=== PATIENT | female | born 1945 | race Caucasian/White ===

== ENCOUNTER 2019-05-14 08:08 | Inpatient (IN) | payer OTHER ==
[~2019-05-14] VITALS: Ht 152.4 cm; Wt 74.8 kg
[2019-05-20] MEDS ORDERED: NORVASC5 MG PO (10:06)
[2019-05-20] MEDS ORDERED: MULTIPLE VITAM1 EACH PO (10:07)
[2019-05-20] MEDS ORDERED: LASIX20 MG PO (10:07)
[2019-05-20] MEDS ORDERED: TRANDATE300 MG PO (10:07)
[2019-05-20] MEDS ORDERED: ASPIRIN81 M1 PO (10:08)
[2019-05-31] MEDS ORDERED: CIPRO500 MG PO (08:30)
[2019-05-31] MEDS ORDERED: INTESTINEX680 M1 PO (08:30)
[2019-05-31] MEDS ORDERED: HYOSCYAMINE0.125 M1 SL (08:30)
[2019-05-31] MEDS ORDERED: OXYC1TAB9 PO (08:30)
[2019-05-31] MEDS ORDERED: FLAGYL500MG PO (08:31)
== END 2019-05-31 12:49 | disposition home or self-care (01) | DRG 349 ==
LOC: SURG 05-20 07:00 → O/R 05-27 08:00 → SURG 05-27 08:00
PROVIDERS: ADMIT Surgery
PROC: 0DBP7ZZ Excision of Rectum, Via Natural or Artificial Opening (ICD-10-PCS; principal; 2019-05-27 07:00)
PROC: 3E0T3BZ Introduction of Anesthetic Agent into Peripheral Nerves and Plexi, Percutaneous Approach (ICD-10-PCS; 2019-05-27 07:00)
DX: C20 Malignant neoplasm of rectum (principal); R19.5 Other fecal abnormalities; I10 Essential (primary) hypertension; M25.462 Effusion, left knee

== ENCOUNTER 2024-07-04 15:52 | Inpatient (IN) | payer OTHER ==
[~2024-07-04] VITALS: Ht 162.6 cm; Wt 45.4 kg
[~2024-07-04 15:52] MED LIST: ASPIRIN81 M1 PO; CIPRO500 MG PO; FLAGYL500MG PO; HYOSCYAMINE0.125 M1 SL; INTESTINEX680 M1 PO; LASIX20 MG PO; MULTIPLE VITAM1 EACH PO; NORVASC5 MG PO; OXYC1TAB9 PO; TRANDATE300 MG PO
[2024-07-04] MEDS ORDERED: 0.9 % SODIUM CHLORIDE 1,000 ML IV ONE (16:45)
[2024-07-04] MEDS ORDERED: LABETALOL HCL 200 MG/40 ML VIAL IV ONE (16:45)
[2024-07-04] MEDS ORDERED: FAMOtidine 10 MG/ML (4ML VIAL) IV ONE (16:45)
[2024-07-04] MEDS ORDERED: MORPHINE SULFATE 4 MG/ML VIAL IV ONE (16:45)
[2024-07-04 17:01] LABS: MEAN CELL VOLUME 83.4 fL (80.00-100.00); MEAN CORPUSCULAR HGB CONC 30.2 g/dl (32.0-36.0); PLATELET COUNT 644 K/uL (150-450); RED BLOOD COUNT 2.02 M/uL (4.00-6.00)
[2024-07-04 17:04] LABS: MEAN CORPUSCULAR HEMOGLOBIN 25.2 pg (27.00-32.0); RED CELL DISTRIBUTION WIDTH 20.1 % (11.5-14.5)
[2024-07-04 17:05] LABS: HEMATOCRIT 16.9 % (36.0-45.00); HEMOGLOBIN 5.1 g/dL (12.0-15.00)
[2024-07-04 17:06] LABS: ERYTHROCYTE SEDIMENTATION RATE 65 mm/hr
[2024-07-04 17:20] LABS: ALBUMIN 1.7 gm/dL (3.4-5.0); BILIRUBIN TOTAL 0.51 mg/dL (0.3-1.2); CALCIUM 9.7 mg/dL (8.5-10.1); CREATININE SERUM 1.32 mg/dL (0.55-1.02); GFR 39.02; GLOBULINA 5.3 G/DL (2.4-3.5); POTASSIUM 3.53 mEq/L (3.5-5.1)
[2024-07-04 17:22] LABS: C-REACTIVE PROTEIN 25.7 MG/DL (0.00-0.29)
[2024-07-04] MEDS ORDERED: PIPERACILLIN/TAZOBACTAM SODIUM 3.375 GM VIAL IV SCH (18:00)
[2024-07-04] MEDS ORDERED: VANCOMYCIN HCL 1,000 MG VIAL IV SCH (20:12)
[2024-07-04] MEDS ORDERED: 0.9 % SODIUM CHLORIDE 1,000 ML IV SCH (20:15)
[2024-07-04] MEDS ORDERED: ACETAMINOPHEN 500 MG GEL..CAP PO PRN (20:15)
[2024-07-04] MEDS ORDERED: ONDANSETRON HCL 4 MG in 0.9 % SODIUM CHLORIDE 50 ML IV PRN (20:15)
[2024-07-04] MEDS ORDERED: OxyCODONE HCL/APAP UD (PERCOCET) PO PRN (20:15)
[2024-07-04] MEDS ORDERED: CEFEPIME HCL 2,000 MG in 0.9 % SODIUM CHLORIDE 100 ML IV SCH (21:00)
[2024-07-04 21:40] LABS: INR 1.31; PARTIAL THROMBOPLASTIN TIME 29.8 SECONDS (22.0-34.0)
[2024-07-04 23:38] LABS: PH,URINE 6.5 (5.0-8.0); URINE APPEARANCE Turbid; URINE BILIRRUBIN Negative (NEGATIVE); URINE BLOOD Small; URINE COLOR Yellow; URINE GLUCOSE Negative (NEGATIVE); URINE KETONE Negative (NEGATIVE); URINE LEUKOCYTE Large; URINE NITRATE Positive; URINE PROTEIN 30 (NEGATIVE); URINE UROBILINOGEN 0.2 E.U./dl
[2024-07-04 23:42] LABS: URINE CAST 3.51 uL (0.0-1.40); URINE EPITHELIAL CELLS 15.6 uL (0.0-38.8); URINE RBC 4.4 uL (0.0-20.8)
[2024-07-04 23:50] LABS: URINE BACTERIA > 9821.5 uL (0.0-1933); URINE WBC > 5548.3 uL (0.0-23.2)
[2024-07-05 00:14] VITALS: BP 114/65; O2SAT 95
[2024-07-05 03:37] VITALS: BP 166/72; O2SAT 96
[2024-07-05] MEDS ORDERED: AMLODIPINE BESYLATE 5 MG TABLET PO SCH (09:00)
[2024-07-05] MEDS ORDERED: FAMOTIDINE/PF 20 MG in 0.9 % SODIUM CHLORIDE 8 ML IV PUSH SCH (09:00)
[2024-07-05] MEDS ORDERED: LABETALOL HCL 200 MG TABLET PO SCH (09:00)
[2024-07-05 09:16] VITALS: BP 143/65; O2SAT 97
[2024-07-05 15:34] LABS: CREATININE SERUM 1.03 mg/dL (0.55-1.02); GFR 51.96; POTASSIUM 3.86 mEq/L (3.5-5.1)
[2024-07-05] MEDS ORDERED: VITAMIN B COMPLEX/LYSINE 1 ML ML PO SCH (16:58)
[2024-07-05] MEDS ORDERED: MORPHINE SULFATE 4 MG/ML CARTRIDGE IV PRN (17:00)
[2024-07-05 18:48] VITALS: BP 118/47
[2024-07-05] MEDS ORDERED: CEFEPIME HCL IV SCH (21:00)
[2024-07-05] MEDS ORDERED: SODIUM CHLORIDE 0.9% IV SCH (21:00)
[2024-07-06 02:20] VITALS: BP 137/81
[2024-07-06 08:42] VITALS: BP 141/74; O2SAT 98
[2024-07-06] MEDS ORDERED: CHLORHEXIDINE GLUCONATE 120 ML BOTTLE TOP SCH (09:00)
[2024-07-06] MEDS ORDERED: DEXTROSE 5 %-0.45 % SOD CHLORD 1,000 ML IV SCH (15:15)
[2024-07-06 17:14] VITALS: BP 120/73
[2024-07-07 02:23] VITALS: BP 149/83
[2024-07-07 08:38] VITALS: BP 150/69; O2SAT 97
[2024-07-07] MEDS ORDERED: VANCOMYCIN HCL 5 MG/ML REDILUIDO IV SCH (09:00)
[2024-07-07 11:00] LABS: HEMATOCRIT 33.3 % (36.0-45.00); HEMOGLOBIN 11.1 g/dL (12.0-15.00); MEAN CELL VOLUME 84.5 fL (80.00-100.00); MEAN CORPUSCULAR HGB CONC 33.2 g/dl (32.0-36.0); PLATELET COUNT 466 K/uL (150-450); RED BLOOD COUNT 3.95 M/uL (4.00-6.00); RED CELL DISTRIBUTION WIDTH 16.5 % (11.5-14.5)
[2024-07-07 11:28] LABS: ALBUMIN 1.6 gm/dL (3.4-5.0); BILIRUBIN TOTAL 0.89 mg/dL (0.3-1.2); CALCIUM 8.9 mg/dL (8.5-10.1); GFR 53.76; GLOBULINA 4.3 G/DL (2.4-3.5); POTASSIUM 3.43 mEq/L (3.5-5.1); TOTAL PROTEIN 5.9 gm/dL (6.4-8.2)
[2024-07-07] MEDS ORDERED: MEROPENEM 1,000 MG VIAL IV SCH (17:00)
[2024-07-07 17:23] VITALS: BP 139/66
[2024-07-07] MEDS ORDERED: MORPHINE SULFATE 4 MG/ML CARTRIDGE IV PRN (17:30)
[2024-07-07] MEDS ORDERED: OxyCODONE HCL/APAP UD (PERCOCET) PO PRN (17:30)
[2024-07-08 02:40] VITALS: BP 120/67; O2SAT 97
[2024-07-08 06:42] LABS: ALBUMIN 1.3 gm/dL (3.4-5.0); BILIRUBIN TOTAL 0.52 mg/dL (0.3-1.2); CALCIUM 8.5 mg/dL (8.5-10.1); CREATININE SERUM 0.9 mg/dL (0.55-1.02); GFR 60.71; GLOBULINA 3.8 G/DL (2.4-3.5); POTASSIUM 3.01 mEq/L (3.5-5.1); TOTAL PROTEIN 5.1 gm/dL (6.4-8.2)
[2024-07-08 08:02] VITALS: BP 142/66
[2024-07-08 16:50] VITALS: BP 178/68
[2024-07-08] MEDS ORDERED: DEXTROSE 5% IV SCH (17:00)
[2024-07-08] MEDS ORDERED: AMPICILLIN SODIUM IV SCH (17:00)
[2024-07-08] MEDS ORDERED: WATER IV SCH (17:00)
[2024-07-09 00:34] VITALS: BP 155/70; O2SAT 98
[2024-07-09 06:34] LABS: HEMATOCRIT 29.4 % (36.0-45.00); HEMOGLOBIN 10.1 g/dL (12.0-15.00); MEAN CELL VOLUME 82.7 fL (80.00-100.00); MEAN CORPUSCULAR HEMOGLOBIN 28.3 pg (27.00-32.0); MEAN CORPUSCULAR HGB CONC 34.2 g/dl (32.0-36.0); PLATELET COUNT 335 K/uL (150-450); RED BLOOD COUNT 3.55 M/uL (4.00-6.00)
[2024-07-09 06:41] LABS: ALBUMIN 1.3 gm/dL (3.4-5.0); BILIRUBIN TOTAL 0.54 mg/dL (0.3-1.2); CALCIUM 8.7 mg/dL (8.5-10.1); CREATININE SERUM 0.79 mg/dL (0.55-1.02); GFR 70.57; GLOBULINA 3.8 G/DL (2.4-3.5); TOTAL PROTEIN 5.1 gm/dL (6.4-8.2)
[2024-07-09 06:46] LABS: ERYTHROCYTE SEDIMENTATION RATE 102 mm/hr
[2024-07-09 07:08] LABS: C-REACTIVE PROTEIN 13.1 MG/DL (0.00-0.29)
[2024-07-09 07:09] LABS: POTASSIUM 2.71 mEq/L (3.5-5.1)
[2024-07-09 07:59] VITALS: BP 155/81
[2024-07-09] MEDS ORDERED: POTASSIUM CHLORIDE IN WATER 40 MEQ/100 ML PIGGYBAG IV SCH (09:00)
[2024-07-09 15:05] VITALS: BP 147/66; O2SAT 98
[2024-07-09 21:51] LABS: PH,URINE 6.5 (5.0-8.0); URINE APPEARANCE Cloudy; URINE BILIRRUBIN Negative (NEGATIVE); URINE COLOR Yellow; URINE GLUCOSE Negative (NEGATIVE); URINE KETONE Negative (NEGATIVE); URINE LEUKOCYTE Moderate; URINE NITRATE Positive; URINE UROBILINOGEN 0.2 E.U./dl
[2024-07-09 21:55] LABS: URINE BACTERIA 376.7 uL (0.0-1933); URINE CAST 3.35 uL (0.0-1.40); URINE EPITHELIAL CELLS 12.9 uL (0.0-38.8); URINE RBC 60.3 uL (0.0-20.8); URINE WBC 653.7 uL (0.0-23.2)
[2024-07-09 22:20] LABS: URINE BLOOD TRACE; URINE MUCUS SCANT; URINE PROTEIN 100 (NEGATIVE)
[2024-07-09 22:21] LABS: URINE CRYSTALS FEW /HPF; URINE YEAST NEGATIVE /hpf
[2024-07-10 00:46] VITALS: BP 146/68; O2SAT 100
[2024-07-10 07:04] LABS: ALBUMIN 1.2 gm/dL (3.4-5.0); BILIRUBIN TOTAL 0.45 mg/dL (0.3-1.2); CALCIUM 8.6 mg/dL (8.5-10.1); CREATININE SERUM 0.65 mg/dL (0.55-1.02); GFR 88.38; POTASSIUM 4.01 mEq/L (3.5-5.1); TOTAL PROTEIN 5.2 gm/dL (6.4-8.2)
[2024-07-10 08:15] VITALS: BP 143/69; O2SAT 100
[2024-07-10] MEDS ORDERED: AMINO ACIDS/PROTEIN HYDROLYS 30 ML BLIST.PACK PO SCH (09:00)
[2024-07-10] MEDS ORDERED: FAMOtidine 20 MG TABLET PO SCH (09:00)
[2024-07-10 16:49] VITALS: BP 131/63; O2SAT 99
[2024-07-10] MEDS ORDERED: FLUCONAZOLE IN NACL,ISO-OSM 100 ML IV SCH (17:00)
[2024-07-10] MEDS ORDERED: LINEZOLID IN DEXTROSE 5% 300 ML IV SCH (21:00)
[2024-07-11 01:09] VITALS: BP 141/64; O2SAT 97
[2024-07-11 08:36] VITALS: BP 149/69; O2SAT 99
[2024-07-11 15:09] LABS: HEMATOCRIT 28.9 % (36.0-45.00); HEMOGLOBIN 9.5 g/dL (12.0-15.00); MEAN CELL VOLUME 84.1 fL (80.00-100.00); MEAN CORPUSCULAR HEMOGLOBIN 27.7 pg (27.00-32.0); MEAN CORPUSCULAR HGB CONC 32.9 g/dl (32.0-36.0); PLATELET COUNT 357 K/uL (150-450); RED BLOOD COUNT 3.43 M/uL (4.00-6.00)
[2024-07-11] MEDS ORDERED: FLUCONAZOLE 200 MG TABLET PO SCH (17:00)
[2024-07-11 17:09] VITALS: BP 155/68; O2SAT 97
[2024-07-12 00:24] VITALS: BP 160/73; O2SAT 97
[2024-07-12 06:47] LABS: HEMATOCRIT 31.3 % (36.0-45.00); HEMOGLOBIN 10.6 g/dL (12.0-15.00); MEAN CELL VOLUME 82.8 fL (80.00-100.00); MEAN CORPUSCULAR HGB CONC 33.9 g/dl (32.0-36.0); PLATELET COUNT 365 K/uL (150-450); RED BLOOD COUNT 3.77 M/uL (4.00-6.00); RED CELL DISTRIBUTION WIDTH 16.7 % (11.5-14.5)
[2024-07-12 08:10] VITALS: BP 147/68; O2SAT 98
[2024-07-12 16:36] VITALS: BP 145/63; O2SAT 95
[2024-07-13] VITALS: BP 162/82; O2SAT 96
[2024-07-13 08:46] VITALS: BP 159/77; O2SAT 99
[2024-07-13 16:06] VITALS: BP 157/74; O2SAT 99
[2024-07-13] MEDS ORDERED: MORPHINE SULFATE 4 MG/ML CARTRIDGE IV PRN (19:30)
[2024-07-13] MEDS ORDERED: PANTOPRAZOLE SODIUM 40 MG/VIAL VIAL IV SCH (19:47)
[2024-07-14 01:00] VITALS: BP 138/76; O2SAT 96
[2024-07-14 08:00] VITALS: BP 134/63; O2SAT 98
[2024-07-14] MEDS ORDERED: FAMOtidine 20 MG TABLET PO SCH (09:00)
[2024-07-14 16:18] VITALS: BP 118/57; O2SAT 97
[2024-07-15 01:16] VITALS: BP 142/67; O2SAT 97
[2024-07-15 06:46] LABS: HEMATOCRIT 31.1 % (36.0-45.00); HEMOGLOBIN 10.5 g/dL (12.0-15.00); MEAN CELL VOLUME 84.3 fL (80.00-100.00); MEAN CORPUSCULAR HEMOGLOBIN 28.6 pg (27.00-32.0); MEAN CORPUSCULAR HGB CONC 33.9 g/dl (32.0-36.0); PLATELET COUNT 486 K/uL (150-450); RED BLOOD COUNT 3.69 M/uL (4.00-6.00); RED CELL DISTRIBUTION WIDTH 16.7 % (11.5-14.5)
[2024-07-15 07:14] LABS: ERYTHROCYTE SEDIMENTATION RATE 75 mm/hr
[2024-07-15 07:48] VITALS: BP 134/72; O2SAT 99
[2024-07-15 11:09] LABS: ALBUMIN 1.6 gm/dL (3.4-5.0); BILIRUBIN TOTAL 0.33 mg/dL (0.3-1.2); CALCIUM 8.9 mg/dL (8.5-10.1); CREATININE SERUM 0.56 mg/dL (0.55-1.02); GFR 104.97; GLOBULINA 4.1 G/DL (2.4-3.5); POTASSIUM 3.69 mEq/L (3.5-5.1); TOTAL PROTEIN 5.7 gm/dL (6.4-8.2)
[2024-07-15 11:10] LABS: C-REACTIVE PROTEIN 2.07 MG/DL (0.00-0.29)
[2024-07-15 15:10] VITALS: BP 132/52; O2SAT 97
[2024-07-15 23:57] VITALS: BP 135/65
[2024-07-16 08:07] VITALS: BP 156/68
[2024-07-16] MEDS ORDERED: AMLODIPINE BESYL5 MG PO (17:14)
[2024-07-16] MEDS ORDERED: APETIGEN P12.5 MG/15 PO (17:14)
[2024-07-16] MEDS ORDERED: INTEGRA PLUS C1 EACH PO (17:14)
[2024-07-16] MEDS ORDERED: PROTEINEX-18 LI30 ML PO (17:14)
[2024-07-16] MEDS ORDERED: FAMOTIDINE20 MG PO (17:14)
[2024-07-16] MEDS ORDERED: LABETALOL HCL200 MG PO (17:14)
[2024-07-16 17:17] VITALS: BP 166/62
== END 2024-07-16 22:00 | disposition home or self-care (01) | DRG 872 ==
LOC: ER 15:52 → MEDI 21:15 → SEC-K 21:15 → MEDI 07-05 01:00
PROVIDERS: General Practice; Internal Medicine; Internal Medicine Infectious Disease; Specialist; ADMIT Internal Medicine; ATTEND Internal Medicine
PROC: BW21ZZZ Computerized Tomography (CT Scan) of Abdomen and Pelvis (ICD-10-PCS; principal; 2024-07-04)
PROC: 30243N1 Transfusion of Nonautologous Red Blood Cells into Central Vein, Percutaneous Approach (ICD-10-PCS; 2024-07-05)
PROC: 02HV33Z Insertion of Infusion Device into Superior Vena Cava, Percutaneous Approach (ICD-10-PCS; 2024-07-15)
DX: A41.9 Sepsis, unspecified organism (principal); N17.9 Acute kidney failure, unspecified; N39.0 Urinary tract infection, site not specified; R65.10 Systemic inflammatory response syndrome (SIRS) of non-infectious origin without acute organ dysfunction; L98.419 Non-pressure chronic ulcer of buttock with unspecified severity; B96.1 Klebsiella pneumoniae [K. pneumoniae] as the cause of diseases classified elsewhere; D72.829 Elevated white blood cell count, unspecified; D64.9 Anemia, unspecified

== ENCOUNTER 2024-08-17 09:20 | Inpatient (IN) | payer OTHER ==
[~2024-08-17] VITALS: Ht 121.9 cm; Wt 40.8 kg
[~2024-08-17 09:20] MED LIST changes: +AMLODIPINE BESYL5 MG PO; +APETIGEN P12.5 MG/15 PO; +FAMOTIDINE20 MG PO; +INTEGRA PLUS C1 EACH PO; +LABETALOL HCL200 MG PO; +PROTEINEX-18 LI30 ML PO
[2024-08-17] MEDS ORDERED: 0.9 % SODIUM CHLORIDE 1,000 ML IV SCH (10:15)
[2024-08-17 11:19] LABS: MEAN CELL VOLUME 88.2 fL (80.00-100.00); MEAN CORPUSCULAR HGB CONC 32.9 g/dl (32.0-36.0); PLATELET COUNT 913 K/uL (150-450); RED CELL DISTRIBUTION WIDTH 16.3 % (11.5-14.5)
[2024-08-17 11:37] LABS: INR 1.07; PARTIAL THROMBOPLASTIN TIME 28.5 SECONDS (22.0-34.0); PROTHROMBIN TIME 11.6 SECONDS (9.0-11.5)
[2024-08-17 11:47] LABS: PH,URINE 6.5 (5.0-8.0); URINE APPEARANCE Turbid; URINE BILIRRUBIN Negative (NEGATIVE); URINE BLOOD Large; URINE COLOR Yellow; URINE GLUCOSE Negative (NEGATIVE); URINE KETONE Negative (NEGATIVE); URINE LEUKOCYTE Large; URINE NITRATE Negative; URINE UROBILINOGEN 0.2 E.U./dl
[2024-08-17 11:49] LABS: URINE EPITHELIAL CELLS 159.9 uL (0.0-38.8); URINE RBC 694.1 uL (0.0-20.8)
[2024-08-17 11:52] LABS: CALCIUM 10.5 mg/dL (8.5-10.1)
[2024-08-17 11:53] LABS: HEMATOCRIT 19.4 % (36.0-45.00); HEMOGLOBIN 6.4 g/dL (12.0-15.00)
[2024-08-17 12:02] LABS: URINE BACTERIA > 9821.5 uL (0.0-1933); URINE CAST > 21.83 uL (0.0-1.40); URINE PROTEIN 300 (NEGATIVE); URINE WBC > 5548.3 uL (0.0-23.2)
[2024-08-17 12:17] LABS: GFR 8.49
[2024-08-17 12:26] LABS: POTASSIUM 8.52 mEq/L (3.5-5.1)
[2024-08-17 12:27] LABS: CREATININE SERUM 4.95 mg/dL (0.55-1.02)
[2024-08-17] MEDS ORDERED: CEFTRIAXONE SODIUM 500 MG VIAL IV ONE (12:30)
[2024-08-17] MEDS ORDERED: SODIUM BICARBONATE 1 MEQ/ML DISP.SYRIN 50ML IV STA (15:08)
[2024-08-17] MEDS ORDERED: DEXTROSE 50 % IN WATER 0.5 G/ML VIAL IV ONE (15:15)
[2024-08-17] MEDS ORDERED: CALCIUM GLUCONATE 100 MG/ML VIAL IV ONE (15:15)
[2024-08-17] MEDS ORDERED: INSULIN REGULAR, HUMAN 1,000 UNIT/10 ML UNITS IV ONE (15:15)
[2024-08-17 16:22] LABS: ALBUMIN 2.6 gm/dL (3.4-5.0); BILIRUBIN TOTAL 0.27 mg/dL (0.3-1.2); CALCIUM 10.5 mg/dL (8.5-10.1); GLOBULINA 6.3 G/DL (2.4-3.5); PHOSPHOROUS 7.5 mg/dL (2.5-4.9); TOTAL PROTEIN 8.9 gm/dL (6.4-8.2)
[2024-08-17] MEDS ORDERED: PANTOPRAZOLE SODIUM 40 MG/VIAL VIAL IV SCH (17:26)
[2024-08-17] MEDS ORDERED: SODIUM POLYSTYRENE SULFONATE 15 G/4 TSP TSP PO SCH (17:28)
[2024-08-17] MEDS ORDERED: ACETAMINOPHEN 500 MG GEL..CAP PO PRN (17:30)
[2024-08-17] MEDS ORDERED: ONDANSETRON HCL 4 MG in 0.9 % SODIUM CHLORIDE 50 ML IV PRN (17:30)
[2024-08-17] MEDS ORDERED: FUROsemide 20 MG/2 ML VIAL IV SCH (17:30)
[2024-08-17 17:59] VITALS: BP 127/61; O2SAT 100
[2024-08-17] MEDS ORDERED: PIPERACILLIN/TAZOBACTAM SODIUM 2.25 GM in DEXTROSE 5 % IN WATER 50 ML IV SCH (18:00)
[2024-08-17 18:07] LABS: GFR 8.53
[2024-08-17 18:08] LABS: CREATININE SERUM 4.93 mg/dL (0.55-1.02)
[2024-08-17 18:09] LABS: POTASSIUM 8.89 mEq/L (3.5-5.1)
[2024-08-17] MEDS ORDERED: CITRIC ACID/SODIUM CITRATE 30 ML BLIST.PACK PO SCH (21:00)
[2024-08-17 21:23] VITALS: BP 123/53
[2024-08-17 22:06] LABS: ABG PH 7.253 (7.35-7.45)
[2024-08-17 22:08] LABS: ABG pCO2 14.6 mmHg (35-45)
[2024-08-17 22:09] LABS: ABG PO2 96.6 mmHg (80-100); BASE EXCESS -18.8 mmol/l; BICARBONATE 6.3 mmol/l (23-25); SaO2 95.4 %
[2024-08-17 22:10] LABS: Tco2 6.8 mmol/l
[2024-08-17 22:11] LABS: allen test SATISFACTORY; puncture site RADIAL RIGHT
[2024-08-17 22:12] LABS: o2 21 %
[2024-08-17] MEDS ORDERED: SODIUM BICARBONATE 150 MEQ in DEXTROSE 5 % IN WATER 1,000 ML IV ONE (22:15)
[2024-08-17] MEDS ORDERED: OxyCODONE HCL/APAP UD (PERCOCET) PO PRN (22:15)
[2024-08-17] MEDS ORDERED: SODIUM BICARBONATE 1 MEQ/ML DISP.SYRIN 50ML IV ONE (22:15)
[2024-08-17 23:47] VITALS: BP 101/63; O2SAT 100
[2024-08-18] VITALS (10 sets, daily range): BP systolic 93–123; BP diastolic 48–64; O2SAT 99–100
[2024-08-18] MEDS ORDERED: SODIUM POLYSTYRENE SULFONATE 15 G/4 TSP TSP PO SCH (13:00)
[2024-08-18] MEDS ORDERED: MEROPENEM 500 MG/VIAL VIAL IV SCH (17:00)
[2024-08-18 21:23] LABS: INR 1.26; PROTHROMBIN TIME 13.5 SECONDS (9.0-11.5)
[2024-08-18 21:35] LABS: ALBUMIN 1.7 gm/dL (3.4-5.0); BILIRUBIN TOTAL 0.47 mg/dL (0.3-1.2); CALCIUM 8.1 mg/dL (8.5-10.1); CREATININE SERUM 3.77 mg/dL (0.55-1.02); GFR 11.62; GLOBULINA 4.9 G/DL (2.4-3.5); POTASSIUM 5.07 mEq/L (3.5-5.1); TOTAL PROTEIN 6.6 gm/dL (6.4-8.2); TSH 0.975 uIU/mL (0.358-3.74)
[2024-08-19] VITALS (21 sets, daily range): BP systolic 105–150; BP diastolic 54–77; O2SAT 98–100
[2024-08-19 17:06] LABS: HEMATOCRIT 30.3 % (36.0-45.00); HEMOGLOBIN 10.5 g/dL (12.0-15.00); MEAN CELL VOLUME 79.6 fL (80.00-100.00); MEAN CORPUSCULAR HEMOGLOBIN 27.7 pg (27.00-32.0); MEAN CORPUSCULAR HGB CONC 34.8 g/dl (32.0-36.0); PLATELET COUNT 457 K/uL (150-450); RED BLOOD COUNT 3.81 M/uL (4.00-6.00); RED CELL DISTRIBUTION WIDTH 18.4 % (11.5-14.5)
[2024-08-20] VITALS (9 sets, daily range): BP systolic 136–172; BP diastolic 52–82; O2SAT 97–100
[2024-08-20 05:22] LABS: HEMATOCRIT 30.3 % (36.0-45.00); HEMOGLOBIN 10.4 g/dL (12.0-15.00); MEAN CELL VOLUME 79.9 fL (80.00-100.00); MEAN CORPUSCULAR HEMOGLOBIN 27.5 pg (27.00-32.0); MEAN CORPUSCULAR HGB CONC 34.4 g/dl (32.0-36.0); PLATELET COUNT 458 K/uL (150-450); RED BLOOD COUNT 3.79 M/uL (4.00-6.00); RED CELL DISTRIBUTION WIDTH 18.9 % (11.5-14.5)
[2024-08-20 05:36] LABS: ALBUMIN 1.7 gm/dL (3.4-5.0); BILIRUBIN TOTAL 0.37 mg/dL (0.3-1.2); CALCIUM 7.7 mg/dL (8.5-10.1); CREATININE SERUM 3.68 mg/dL (0.55-1.02); GFR 11.95; GLOBULINA 4.7 G/DL (2.4-3.5); TOTAL PROTEIN 6.4 gm/dL (6.4-8.2)
[2024-08-20 06:28] LABS: POTASSIUM 2.97 mEq/L (3.5-5.1)
[2024-08-20] MEDS ORDERED: POTASSIUM CHLORIDE 20MEQ/100ML H2O PB IV ONE (09:00)
[2024-08-20] MEDS ORDERED: AMIODARONE HCL 200 MG TABLET PO SCH (09:00)
[2024-08-20] MEDS ORDERED: SODIUM CHLORIDE 0.45 % 1,000 ML IV SCH (18:30)
[2024-08-21] VITALS (9 sets, daily range): BP systolic 156–187; BP diastolic 73–82; O2SAT 98–100
[2024-08-21 06:43] LABS: ALBUMIN 1.9 gm/dL (3.4-5.0); CALCIUM 8.1 mg/dL (8.5-10.1); CREATININE SERUM 3.8 mg/dL (0.55-1.02); GFR 11.52; MAGNESIUM 2.6 mg/dL (1.8-2.4); PHOSPHOROUS 7.3 mg/dL (2.5-4.9)
[2024-08-21 07:30] LABS: POTASSIUM 2.75 mEq/L (3.5-5.1)
[2024-08-21] MEDS ORDERED: CEFTAZIDIME/AVIBACTAM 0.94GM/100ML NSS PB IV SCH (12:00)
[2024-08-21] MEDS ORDERED: POTASSIUM CHLORIDE IN WATER 100 ML IV NR (13:00)
[2024-08-21] MEDS ORDERED: [UNRECOGNIZED DRUG - OTHER] IV SCH (18:30)
[2024-08-21] MEDS ORDERED: D5 IV SCH (18:30)
[2024-08-21] MEDS ORDERED: POTASSIUM CHLORIDE IV SCH (18:30)
[2024-08-22] VITALS (8 sets, daily range): BP systolic 148–178; BP diastolic 68–80; O2SAT 96–100
[2024-08-22 07:01] LABS: HEMATOCRIT 34.6 % (36.0-45.00); HEMOGLOBIN 11.7 g/dL (12.0-15.00); MEAN CELL VOLUME 79.4 fL (80.00-100.00); MEAN CORPUSCULAR HEMOGLOBIN 26.9 pg (27.00-32.0); MEAN CORPUSCULAR HGB CONC 33.8 g/dl (32.0-36.0); PLATELET COUNT 448 K/uL (150-450); RED BLOOD COUNT 4.35 M/uL (4.00-6.00); RED CELL DISTRIBUTION WIDTH 19.9 % (11.5-14.5)
[2024-08-22 07:37] LABS: ALBUMIN 1.9 gm/dL (3.4-5.0); BILIRUBIN TOTAL 0.54 mg/dL (0.3-1.2); CALCIUM 8.2 mg/dL (8.5-10.1); GLOBULINA 4.4 G/DL (2.4-3.5); MAGNESIUM 2.4 mg/dL (1.8-2.4); PHOSPHOROUS 6.8 mg/dL (2.5-4.9); POTASSIUM 3.19 mEq/L (3.5-5.1); TOTAL PROTEIN 6.3 gm/dL (6.4-8.2)
[2024-08-22 07:47] LABS: GFR 10.95
[2024-08-22 08:09] LABS: CREATININE SERUM 3.97 mg/dL (0.55-1.02)
[2024-08-22] MEDS ORDERED: fentaNYL CITRATE 50 MCG/ML AMPUL IV PUSH ONE (17:30)
[2024-08-22] MEDS ORDERED: MIDAZOLAM HCL 2 MG/2 ML VIAL IV PUSH ONE (17:30)
[2024-08-23] VITALS (8 sets, daily range): BP systolic 157–181; BP diastolic 80–90; O2SAT 96–100
[2024-08-23 06:19] LABS: MEAN CELL VOLUME 79.1 fL (80.00-100.00); MEAN CORPUSCULAR HEMOGLOBIN 27.2 pg (27.00-32.0); MEAN CORPUSCULAR HGB CONC 34.4 g/dl (32.0-36.0); PLATELET COUNT 338 K/uL (150-450); RED BLOOD COUNT 4.04 M/uL (4.00-6.00)
[2024-08-23 06:47] LABS: ALBUMIN 1.8 gm/dL (3.4-5.0); BILIRUBIN TOTAL 0.61 mg/dL (0.3-1.2); CALCIUM 8.1 mg/dL (8.5-10.1); CREATININE SERUM 3.73 mg/dL (0.55-1.02); GFR 11.77; GLOBULINA 4.1 G/DL (2.4-3.5); TOTAL PROTEIN 5.9 gm/dL (6.4-8.2)
[2024-08-23 07:29] LABS: POTASSIUM 2.95 mEq/L (3.5-5.1)
[2024-08-23] MEDS ORDERED: PANTOPRAZOLE SODIUM 40 MG/VIAL VIAL IV SCH (09:00)
[2024-08-23] MEDS ORDERED: hydrALAZINE HCL 20 MG VIAL IV PRN (14:00)
[2024-08-23] MEDS ORDERED: FLUCONAZOLE IN NACL,ISO-OSM 100 ML IV SCH (16:30)
[2024-08-23] MEDS ORDERED: FLUCONAZOLE IN NACL,ISO-OSM 100 MG/50 ML PIGGYBAG IV STA (16:59)
[2024-08-23] MEDS ORDERED: hydrALAZINE HCL 25 MG TABLET PO SCH (17:00)
[2024-08-23] MEDS ORDERED: FLUCONAZOLE IN NACL,ISO-OSM 200 MG/100 ML PIGGYBAG IV NR (17:00)
[2024-08-24] VITALS (9 sets, daily range): BP systolic 116–175; BP diastolic 70–80; O2SAT 94–100
[2024-08-24 08:36] LABS: ALBUMIN 1.6 gm/dL (3.4-5.0); BILIRUBIN TOTAL 0.62 mg/dL (0.3-1.2); CALCIUM 7.8 mg/dL (8.5-10.1); CREATININE SERUM 3.39 mg/dL (0.55-1.02); GFR 13.14; GLOBULINA 3.9 G/DL (2.4-3.5); MAGNESIUM 1.7 mg/dL (1.8-2.4); PHOSPHOROUS 5.3 mg/dL (2.5-4.9); POTASSIUM 3.23 mEq/L (3.5-5.1); TOTAL PROTEIN 5.5 gm/dL (6.4-8.2)
[2024-08-24] MEDS ORDERED: AMIODARONE HCL 200 MG TABLET PO SCH (09:00)
[2024-08-24] MEDS ORDERED: FLUCONAZOLE IN NACL,ISO-OSM 50 ML IV SCH (09:00)
[2024-08-24 09:57] LABS: HEMATOCRIT 30.3 % (36.0-45.00); HEMOGLOBIN 10.5 g/dL (12.0-15.00); MEAN CORPUSCULAR HEMOGLOBIN 27.3 pg (27.00-32.0); MEAN CORPUSCULAR HGB CONC 34.6 g/dl (32.0-36.0); PLATELET COUNT 266 K/uL (150-450); RED BLOOD COUNT 3.83 M/uL (4.00-6.00); RED CELL DISTRIBUTION WIDTH 20.8 % (11.5-14.5)
[2024-08-24] MEDS ORDERED: POTASSIUM CHLORIDE/D5-0.45NACL 1,000 ML IV SCH (15:00)
[2024-08-24] MEDS ORDERED: POTASSIUM CHLORIDE IN WATER 40 MEQ/100 ML PIGGYBAG IV SCH (17:00)
[2024-08-24] MEDS ORDERED: FLUCONAZOLE IN NACL,ISO-OSM 2 MG/ML ML IV SCH (17:00)
[2024-08-25] VITALS (8 sets, daily range): BP systolic 130–180; BP diastolic 54–80; O2SAT 97–100
[2024-08-26] VITALS (8 sets, daily range): BP systolic 160–184; BP diastolic 71–81; O2SAT 99–100
[2024-08-26 07:11] LABS: ALBUMIN 1.7 gm/dL (3.4-5.0); CALCIUM 7.8 mg/dL (8.5-10.1); CREATININE SERUM 2.35 mg/dL (0.55-1.02); GFR 20.06; MAGNESIUM 1.6 mg/dL (1.8-2.4); PHOSPHOROUS 3.5 mg/dL (2.5-4.9); POTASSIUM 3.2 mEq/L (3.5-5.1)
[2024-08-26] MEDS ORDERED: MAGNESIUM SULFATE IN WATER 2 GM/50 ML PIGGYBAG IV NR (11:00)
[2024-08-26 15:30] LABS: HEMATOCRIT 28.7 % (36.0-45.00); HEMOGLOBIN 9.7 g/dL (12.0-15.00); MEAN CELL VOLUME 79.5 fL (80.00-100.00); MEAN CORPUSCULAR HEMOGLOBIN 26.9 pg (27.00-32.0); MEAN CORPUSCULAR HGB CONC 33.8 g/dl (32.0-36.0); PLATELET COUNT 279 K/uL (150-450); RED BLOOD COUNT 3.61 M/uL (4.00-6.00); RED CELL DISTRIBUTION WIDTH 20.9 % (11.5-14.5)
[2024-08-27] VITALS (9 sets, daily range): BP systolic 153–170; BP diastolic 56–74; O2SAT 97–100
[2024-08-27 05:08] LABS: HEMATOCRIT 24.3 % (36.0-45.00); MEAN CELL VOLUME 78.8 fL (80.00-100.00); MEAN CORPUSCULAR HGB CONC 35.2 g/dl (32.0-36.0); PLATELET COUNT 261 K/uL (150-450); RED BLOOD COUNT 3.08 M/uL (4.00-6.00); RED CELL DISTRIBUTION WIDTH 21.5 % (11.5-14.5)
[2024-08-27 05:32] LABS: MEAN CORPUSCULAR HEMOGLOBIN 27.5 pg (27.00-32.0)
[2024-08-27 05:33] LABS: HEMOGLOBIN 8.5 g/dL (12.0-15.00)
[2024-08-27 05:41] LABS: ALBUMIN 1.7 gm/dL (3.4-5.0); ALKALINE PHOSPHATASE 100 U/L (50-136); BILIRUBIN TOTAL 0.67 mg/dL (0.3-1.2); BLOOD UREA NITROGEN 68 mg/dL (7-18); BUN CREA RATIO 35 (7.0-25.0); CALCIUM 7.9 mg/dL (8.5-10.1); CARBON DIOXIDE 17 mEq/L (21-32); CREATININE SERUM 1.96 mg/dL (0.55-1.02); GFR 24.73; GLOBULINA 3.8 G/DL (2.4-3.5); GLUCOSE FASTING 77 mg/dL (65-100); OSMOLALITY SERUM 315 MOSM/KG (275-295); SODIUM 149 mmol/L (136-145); TOTAL PROTEIN 5.5 gm/dL (6.4-8.2)
[2024-08-27 06:11] LABS: ALT/SGPT < 6 U/L (12-78); ANION GAP 12 (10.0-20.0); AST/SGOT 7 U/L (15-37)
[2024-08-27 06:12] LABS: CHLORIDE 123 mmol/L (98-107); POTASSIUM 2.86 mEq/L (3.5-5.1)
[2024-08-27] MEDS ORDERED: POTASSIUM CHLORIDE IN WATER 100 ML IV NR (07:15)
[2024-08-28] VITALS (8 sets, daily range): BP systolic 154–181; BP diastolic 75–83; O2SAT 98–100
[2024-08-28 06:54] LABS: MEAN CELL VOLUME 78.9 fL (80.00-100.00); MEAN CORPUSCULAR HGB CONC 35.7 g/dl (32.0-36.0); PLATELET COUNT 269 K/uL (150-450); RED BLOOD COUNT 2.98 M/uL (4.00-6.00); RED CELL DISTRIBUTION WIDTH 21.7 % (11.5-14.5)
[2024-08-28 07:02] LABS: ALBUMIN 1.7 gm/dL (3.4-5.0); BILIRUBIN TOTAL 0.61 mg/dL (0.3-1.2); CALCIUM 7.9 mg/dL (8.5-10.1); CREATININE SERUM 1.7 mg/dL (0.55-1.02); GFR 29.14; GLOBULINA 4.1 G/DL (2.4-3.5); POTASSIUM 4.85 mEq/L (3.5-5.1); TOTAL PROTEIN 5.8 gm/dL (6.4-8.2)
[2024-08-28 07:07] LABS: HEMATOCRIT 23.6 % (36.0-45.00); HEMOGLOBIN 8.4 g/dL (12.0-15.00); MEAN CORPUSCULAR HEMOGLOBIN 28.1 pg (27.00-32.0)
[2024-08-28] MEDS ORDERED: hydrALAZINE HCL 50 MG TABLET PO SCH (09:00)
[2024-08-28] MEDS ORDERED: DIATRIZOATE MEGLUMINE, SODIUM 30 ML BOTTLE PO NR (10:00)
[2024-08-28] MEDS ORDERED: SODIUM HYPOCHLORITE 1OZ TOP SCH (10:28)
[2024-08-28] MEDS ORDERED: Daptomycin 350 MG/VIAL VIAL IV SCH ×2 (12:00→16:00)
[2024-08-29] VITALS (9 sets, daily range): BP systolic 125–186; BP diastolic 62–90; O2SAT 98–100
[2024-08-29] MEDS ORDERED: TRAMADOL HCL 50 MG TABLET PO PRN (08:00)
[2024-08-29] MEDS ORDERED: ONDANSETRON HCL 2 MG/ML VIAL IV PRN (08:15)
[2024-08-29] MEDS ORDERED: PANTOPRAZOLE SODIUM 40 MG/VIAL VIAL IV SCH (09:00)
[2024-08-29] MEDS ORDERED: AMLODIPINE BESYLATE 5 MG TABLET PO SCH (09:00)
[2024-08-29] MEDS ORDERED: hydrALAZINE HCL 50 MG TABLET PO SCH (09:00)
[2024-08-29] MEDS ORDERED: AMINO ACIDS 4.25%/DEXTROSE 10% 1,000 ML CENTRAL SCH (19:29)
[2024-08-29] MEDS ORDERED: MORPHINE SULFATE 4 MG/ML VIAL IV PRN (19:30)
[2024-08-30] VITALS (10 sets, daily range): BP systolic 114–165; BP diastolic 54–76; O2SAT 97–100
[2024-08-30] MEDS ORDERED: AMINO ACIDS 4.25%/DEXTROSE 10% 1,000 ML CENTRAL SCH (17:00)
[2024-08-31] VITALS (10 sets, daily range): BP systolic 139–170; BP diastolic 68–80; O2SAT 97–99
[2024-08-31] MEDS ORDERED: CITRIC ACID/SODIUM CITRATE 30 ML BLIST.PACK PO SCH (22:04)
[2024-09-01] VITALS (10 sets, daily range): BP systolic 120–160; BP diastolic 70–76; O2SAT 96–100
[2024-09-01 02:41] LABS: HEMATOCRIT 33.2 % (36.0-45.00); HEMOGLOBIN 11.5 g/dL (12.0-15.00); MEAN CELL VOLUME 76.6 fL (80.00-100.00); MEAN CORPUSCULAR HEMOGLOBIN 26.5 pg (27.00-32.0); MEAN CORPUSCULAR HGB CONC 34.6 g/dl (32.0-36.0); PLATELET COUNT 301 K/uL (150-450); RED BLOOD COUNT 4.33 M/uL (4.00-6.00); RED CELL DISTRIBUTION WIDTH 20.8 % (11.5-14.5)
[2024-09-01 03:05] LABS: ALKALINE PHOSPHATASE 100 U/L (50-136); AST/SGOT 10 U/L (15-37); BILIRUBIN TOTAL 0.65 mg/dL (0.3-1.2); BLOOD UREA NITROGEN 37 mg/dL (7-18); BUN CREA RATIO 33 (7.0-25.0); CARBON DIOXIDE 19 mEq/L (21-32); CREATININE SERUM 1.12 mg/dL (0.55-1.02); GLOBULINA 4.1 G/DL (2.4-3.5); GLUCOSE FASTING 70 mg/dL (65-100); OSMOLALITY SERUM 292 MOSM/KG (275-295); POTASSIUM 4.43 mEq/L (3.5-5.1); SODIUM 143 mmol/L (136-145); TOTAL PROTEIN 6.1 gm/dL (6.4-8.2)
[2024-09-01 03:12] LABS: ALT/SGPT < 6 U/L (12-78); ANION GAP 12 (10.0-20.0); CALCIUM 8.6 mg/dL (8.5-10.1); CHLORIDE 116 mmol/L (98-107); GFR 47.17
[2024-09-01] MEDS ORDERED: HYOSCYAMINE SULFATE 0.125 MG TAB.SUBL SL SCH (17:00)
[2024-09-02] VITALS (10 sets, daily range): BP systolic 140–156; BP diastolic 60–77; O2SAT 96–100
[2024-09-02 07:02] LABS: HEMATOCRIT 30.1 % (36.0-45.00); HEMOGLOBIN 10.6 g/dL (12.0-15.00); MEAN CELL VOLUME 76.5 fL (80.00-100.00); MEAN CORPUSCULAR HGB CONC 35.3 g/dl (32.0-36.0); PLATELET COUNT 304 K/uL (150-450); RED BLOOD COUNT 3.93 M/uL (4.00-6.00); RED CELL DISTRIBUTION WIDTH 20.2 % (11.5-14.5)
[2024-09-02 07:35] LABS: INR 1.13; PARTIAL THROMBOPLASTIN TIME 31.3 SECONDS (22.0-34.0); PROTHROMBIN TIME 12.2 SECONDS (9.0-11.5)
[2024-09-02 07:44] LABS: ALBUMIN 1.9 gm/dL (3.4-5.0); ALKALINE PHOSPHATASE 93 U/L (50-136); ANION GAP 11 (10.0-20.0); AST/SGOT 8 U/L (15-37); BILIRUBIN TOTAL 0.48 mg/dL (0.3-1.2); BILIRUBIN,CONJUGATED 0.17 mg/dL (0.0-0.2); BILIRUBIN,UNCONJUGATED 0.31 mg/dL (0.0-0.6); BLOOD UREA NITROGEN 37 mg/dL (7-18); BUN CREA RATIO 35 (7.0-25.0); CALCIUM 8.9 mg/dL (8.5-10.1); CARBON DIOXIDE 19 mEq/L (21-32); CHLORIDE 114 mmol/L (98-107); CHOL HDL RATIO 3.9 (0-5.0); CHOLESTEROL 131 mg/dL (0-200); CREATININE SERUM 1.05 mg/dL (0.55-1.02); GFR 50.82; GLOBULINA 4.2 G/DL (2.4-3.5); GLUCOSE FASTING 91 mg/dL (65-100); HDL 34 mg/dl (40-60); LDL 58 mg/dl (0-130); OSMOLALITY SERUM 288 MOSM/KG (275-295); POTASSIUM 4.07 mEq/L (3.5-5.1); SODIUM 140 mmol/L (136-145); TOTAL IRON BINDING CAPACITY 127 ug/dl (250-450); TOTAL PROTEIN 6.1 gm/dL (6.4-8.2); TRIGLYCERIDES 197 mg/dL (0-150); VLDL 39 (0-39)
[2024-09-02 08:00] LABS: ALT/SGPT < 6 U/L (12-78)
[2024-09-02] MEDS ORDERED: MAGNESIUM SULFATE IN WATER 50 ML IV NR (08:45)
[2024-09-02 10:15] LABS: UREA CLEARANCE 5.5 ML/MIN
[2024-09-02] MEDS ORDERED: Daptomycin 350 MG/VIAL VIAL IV SCH (17:00)
[2024-09-02] MEDS ORDERED: METOCLOPRAMIDE HCL 10 MG in DEXTROSE 5 % IN WATER 50 ML IV SCH (18:25)
[2024-09-02] MEDS ORDERED: SIMETHICONE 125 MG CAPSULE PO STA (18:26)
[2024-09-03] VITALS (9 sets, daily range): BP systolic 114–137; BP diastolic 64–73; O2SAT 91–99
[2024-09-03] MEDS ORDERED: DIATRIZOATE MEGLUMINE, SODIUM 30 ML BOTTLE PO NR (07:15)
[2024-09-03] MEDS ORDERED: SIMETHICONE 125 MG CAPSULE PO SCH (09:00)
[2024-09-03] MEDS ORDERED: IPRATROPIUM BROMIDE 0.5 MG/2.5 ML AMPUL.NEB IH SCH (22:13)
[2024-09-04] VITALS (9 sets, daily range): BP systolic 112–150; BP diastolic 63–70; O2SAT 91–100
[2024-09-04] MEDS ORDERED: CEFTAZIDIME/AVIBACTAM 0.94GM/100ML NSS PB IV SCH (05:00)
[2024-09-04 05:05] LABS: HEMATOCRIT 27.7 % (36.0-45.00); MEAN CELL VOLUME 77.7 fL (80.00-100.00); MEAN CORPUSCULAR HEMOGLOBIN 26.9 pg (27.00-32.0); MEAN CORPUSCULAR HGB CONC 34.6 g/dl (32.0-36.0); PLATELET COUNT 249 K/uL (150-450); RED BLOOD COUNT 3.56 M/uL (4.00-6.00); RED CELL DISTRIBUTION WIDTH 19.7 % (11.5-14.5)
[2024-09-04 05:14] LABS: HEMOGLOBIN 9.6 g/dL (12.0-15.00)
[2024-09-04 05:34] LABS: ALBUMIN 1.9 gm/dL (3.4-5.0); BILIRUBIN TOTAL 0.92 mg/dL (0.3-1.2); CALCIUM 8.6 mg/dL (8.5-10.1); CREATININE SERUM 1.08 mg/dL (0.55-1.02); GFR 49.19; GLOBULINA 3.8 G/DL (2.4-3.5); POTASSIUM 3.3 mEq/L (3.5-5.1); TOTAL PROTEIN 5.7 gm/dL (6.4-8.2)
[2024-09-04 05:37] LABS: MAGNESIUM 1.5 mg/dL (1.8-2.4); PHOSPHOROUS 2.2 mg/dL (2.5-4.9)
[2024-09-04] MEDS ORDERED: MORPHINE SULFATE 4 MG/ML VIAL IV PRN (13:30)
[2024-09-04] MEDS ORDERED: KETOROLAC TROMETHAMINE 30 MG VIAL IM PRN (13:30)
[2024-09-04 14:03] LABS: ABG PH 7.434 (7.35-7.45); BASE EXCESS -2.7 mmol/l; BICARBONATE 20.4 mmol/l (23-25); SaO2 93.3 %; Tco2 21.3 mmol/l; allen test SATISFACTORY; o2 21 %; puncture site RADIAL RIGHT
[2024-09-04] MEDS ORDERED: POLYETHYLENE GLYCOL 3350 17 GM BLIST.PACK PO SCH (17:00)
[2024-09-04] MEDS ORDERED: DEXTROSE 10 % IN WATER 500 ML IV SCH (18:15)
[2024-09-04 19:32] LABS: CALCIUM 8.6 mg/dL (8.5-10.1); CHOL HDL RATIO 3.4 (0-5.0); CREATININE SERUM 1.15 mg/dL (0.55-1.02); GFR 45.75; POTASSIUM 3.21 mEq/L (3.5-5.1)
[2024-09-05] VITALS (10 sets, daily range): BP systolic 143–157; BP diastolic 64–78; O2SAT 90–100
[2024-09-05] MEDS ORDERED: MAGNESIUM SULFATE IN WATER 4 GM/100 ML PIGGYBACK IV ONE (05:00)
[2024-09-05] MEDS ORDERED: hydrALAZINE HCL 50 MG,hydrALAZINE HCL 25 MG PO SCH (09:00)
[2024-09-05] MEDS ORDERED: POTASSIUM BICARBONATE/CIT AC 25 MEQ TABLET.EFF PO SCH (09:00)
[2024-09-05] MEDS ORDERED: IRBESARTAN 150 MG TABLET PO SCH (09:00)
[2024-09-05] MEDS ORDERED: AMINO ACIDS 4.25%/DEXTROSE 10% 1,000 ML CENTRAL SCH (17:00)
[2024-09-06] VITALS (9 sets, daily range): BP systolic 158–163; BP diastolic 80–802; O2SAT 93–100
[2024-09-06 05:19] LABS: HEMATOCRIT 25.7 % (36.0-45.00); MEAN CORPUSCULAR HGB CONC 34.1 g/dl (32.0-36.0); PLATELET COUNT 258 K/uL (150-450); RED BLOOD COUNT 3.26 M/uL (4.00-6.00); RED CELL DISTRIBUTION WIDTH 21.3 % (11.5-14.5)
[2024-09-06 05:27] LABS: HEMOGLOBIN 8.8 g/dL (12.0-15.00); MEAN CORPUSCULAR HEMOGLOBIN 26.9 pg (27.00-32.0)
[2024-09-06 05:35] LABS: ALBUMIN 1.5 gm/dL (3.4-5.0); CALCIUM 8.5 mg/dL (8.5-10.1); CREATININE SERUM 1.93 mg/dL (0.55-1.02); GFR 25.17; MAGNESIUM 1.6 mg/dL (1.8-2.4); PHOSPHOROUS 2.9 mg/dL (2.5-4.9); POTASSIUM 4.11 mEq/L (3.5-5.1)
[2024-09-07] VITALS (7 sets, daily range): BP systolic 150–165; BP diastolic 70–74; O2SAT 93–100
[2024-09-08] VITALS (8 sets, daily range): BP systolic 177–179; BP diastolic 70–83; O2SAT 96–99
[2024-09-08 17:06] LABS: HEMATOCRIT 28.5 % (36.0-45.00); HEMOGLOBIN 9.4 g/dL (12.0-15.00); MEAN CELL VOLUME 78.8 fL (80.00-100.00); MEAN CORPUSCULAR HEMOGLOBIN 26.1 pg (27.00-32.0); MEAN CORPUSCULAR HGB CONC 33.2 g/dl (32.0-36.0); PLATELET COUNT 279 K/uL (150-450); RED BLOOD COUNT 3.61 M/uL (4.00-6.00); RED CELL DISTRIBUTION WIDTH 20.7 % (11.5-14.5)
[2024-09-08 17:30] LABS: ALBUMIN 1.7 gm/dL (3.4-5.0); BILIRUBIN TOTAL 0.45 mg/dL (0.3-1.2); CALCIUM 9.1 mg/dL (8.5-10.1); CREATININE SERUM 2.66 mg/dL (0.55-1.02); GFR 17.38; GLOBULINA 3.9 G/DL (2.4-3.5); POTASSIUM 3.9 mEq/L (3.5-5.1); TOTAL PROTEIN 5.6 gm/dL (6.4-8.2)
[2024-09-09] VITALS (9 sets, daily range): BP systolic 157–192; BP diastolic 72–78; O2SAT 96–99
[2024-09-09 06:13] LABS: HEMATOCRIT 26.6 % (36.0-45.00); MEAN CELL VOLUME 78.8 fL (80.00-100.00); MEAN CORPUSCULAR HEMOGLOBIN 26.5 pg (27.00-32.0); MEAN CORPUSCULAR HGB CONC 33.7 g/dl (32.0-36.0); PLATELET COUNT 253 K/uL (150-450); RED BLOOD COUNT 3.38 M/uL (4.00-6.00); RED CELL DISTRIBUTION WIDTH 20.6 % (11.5-14.5)
[2024-09-09 06:14] LABS: INR 1.11; PARTIAL THROMBOPLASTIN TIME 35.4 SECONDS (22.0-34.0)
[2024-09-09 06:37] LABS: ALBUMIN 1.6 gm/dL (3.4-5.0); ALKALINE PHOSPHATASE 97 U/L (50-136); ANION GAP 16 (10.0-20.0); AST/SGOT 8 U/L (15-37); BILIRUBIN TOTAL 0.44 mg/dL (0.3-1.2); BILIRUBIN,CONJUGATED 0.12 mg/dL (0.0-0.2); BILIRUBIN,UNCONJUGATED 0.32 mg/dL (0.0-0.6); CALCIUM 9.2 mg/dL (8.5-10.1); CARBON DIOXIDE 16 mEq/L (21-32); CHLORIDE 104 mmol/L (98-107); CHOL HDL RATIO 5.5 (0-5.0); CHOLESTEROL 132 mg/dL (0-200); CREATININE SERUM 2.78 mg/dL (0.55-1.02); GFR 16.52; GLOBULINA 3.8 G/DL (2.4-3.5); GLUCOSE FASTING 85 mg/dL (65-100); HDL 24 mg/dl (40-60); LDL 73 mg/dl (0-130); POTASSIUM 3.92 mEq/L (3.5-5.1); SODIUM 132 mmol/L (136-145); TOTAL IRON BINDING CAPACITY 116 ug/dl (250-450); TOTAL PROTEIN 5.4 gm/dL (6.4-8.2); TRIGLYCERIDES 175 mg/dL (0-150); VLDL 35 (0-39)
[2024-09-09 07:11] LABS: ALT/SGPT < 6 U/L (12-78); BLOOD UREA NITROGEN 105 mg/dL (7-18); BUN CREA RATIO 38 (7.0-25.0); OSMOLALITY SERUM 297 MOSM/KG (275-295)
[2024-09-09] MEDS ORDERED: DIATRIZOATE MEGLUMINE, SODIUM 30 ML BOTTLE PO STA (09:28)
[2024-09-09 11:48] LABS: UREA CLEARANCE 1.6 ML/MIN
[2024-09-09] MEDS ORDERED: hydrALAZINE HCL 50 MG,hydrALAZINE HCL 25 MG PO SCH (17:00)
[2024-09-10] VITALS (9 sets, daily range): BP systolic 134–162; BP diastolic 68–76; O2SAT 97–100
[2024-09-10 16:45] LABS: ALBUMIN 1.7 gm/dL (3.4-5.0); ALKALINE PHOSPHATASE 100 U/L (50-136); ANION GAP 14 (10.0-20.0); AST/SGOT 5 U/L (15-37); BILIRUBIN TOTAL 0.44 mg/dL (0.3-1.2); CARBON DIOXIDE 20 mEq/L (21-32); CHLORIDE 100 mmol/L (98-107); CREATININE SERUM 3.89 mg/dL (0.55-1.02); GFR 11.21; GLUCOSE FASTING 89 mg/dL (65-100); POTASSIUM 4.03 mEq/L (3.5-5.1); SODIUM 130 mmol/L (136-145); TOTAL PROTEIN 5.7 gm/dL (6.4-8.2)
[2024-09-10 16:46] LABS: ALT/SGPT < 6 U/L (12-78); BUN CREA RATIO 34 (7.0-25.0); OSMOLALITY SERUM 303 MOSM/KG (275-295)
[2024-09-10 16:54] LABS: BLOOD UREA NITROGEN 133 mg/dL (7-18)
[2024-09-10] MEDS ORDERED: AMINO ACIDS 4.25%/DEXTROSE 10% 1,000 ML CENTRAL SCH (17:00)
[2024-09-10] MEDS ORDERED: 0.9 % SODIUM CHLORIDE 1,000 ML IV SCH (19:45)
[2024-09-11] VITALS (9 sets, daily range): BP systolic 136–164; BP diastolic 65–79; O2SAT 98–100
[2024-09-11 05:43] LABS: MEAN CELL VOLUME 77.6 fL (80.00-100.00); MEAN CORPUSCULAR HGB CONC 34.3 g/dl (32.0-36.0); PLATELET COUNT 268 K/uL (150-450); RED BLOOD COUNT 3.35 M/uL (4.00-6.00); RED CELL DISTRIBUTION WIDTH 20.4 % (11.5-14.5)
[2024-09-11 06:11] LABS: ALBUMIN 1.7 gm/dL (3.4-5.0); CREATININE SERUM 3.87 mg/dL (0.55-1.02); GFR 11.28; MAGNESIUM 1.8 mg/dL (1.8-2.4); PHOSPHOROUS 3.1 mg/dL (2.5-4.9); POTASSIUM 3.68 mEq/L (3.5-5.1)
[2024-09-11 06:30] LABS: HEMOGLOBIN 8.9 g/dL (12.0-15.00); MEAN CORPUSCULAR HEMOGLOBIN 26.5 pg (27.00-32.0)
[2024-09-12] VITALS (10 sets, daily range): BP systolic 135–141; BP diastolic 59–64; O2SAT 98–100
[2024-09-13] VITALS (11 sets, daily range): BP systolic 127–155; BP diastolic 59–67; O2SAT 96–100
[2024-09-13 07:06] LABS: MEAN CELL VOLUME 76.3 fL (80.00-100.00); MEAN CORPUSCULAR HGB CONC 35.4 g/dl (32.0-36.0); PLATELET COUNT 249 K/uL (150-450); RED BLOOD COUNT 2.92 M/uL (4.00-6.00); RED CELL DISTRIBUTION WIDTH 20.2 % (11.5-14.5)
[2024-09-13 07:20] LABS: ALBUMIN 1.4 gm/dL (3.4-5.0); ALKALINE PHOSPHATASE 97 U/L (50-136); AST/SGOT 10 U/L (15-37); BILIRUBIN TOTAL 0.51 mg/dL (0.3-1.2); CALCIUM 8.3 mg/dL (8.5-10.1); CHLORIDE 95 mmol/L (98-107); CREATININE SERUM 3.87 mg/dL (0.55-1.02); GFR 11.28; GLOBULINA 3.3 G/DL (2.4-3.5); GLUCOSE FASTING 88 mg/dL (65-100); POTASSIUM 3.49 mEq/L (3.5-5.1); SODIUM 126 mmol/L (136-145); TOTAL PROTEIN 4.7 gm/dL (6.4-8.2)
[2024-09-13 08:00] LABS: HEMATOCRIT 22.3 % (36.0-45.00)
[2024-09-13 08:01] LABS: HEMOGLOBIN 7.9 g/dL (12.0-15.00)
[2024-09-13 08:04] LABS: ALT/SGPT < 6 U/L (12-78); ANION GAP 21 (10.0-20.0); BUN CREA RATIO 43 (7.0-25.0); CARBON DIOXIDE 13 mEq/L (21-32); OSMOLALITY SERUM 307 MOSM/KG (275-295)
[2024-09-13 08:16] LABS: BLOOD UREA NITROGEN 165 mg/dL (7-18)
[2024-09-14] VITALS (8 sets, daily range): BP systolic 144–156; BP diastolic 59–69; O2SAT 90–100
[2024-09-14] MEDS ORDERED: POLYETHYLENE GLYCOL 3350 17 GM BLIST.PACK PO SCH (10:28)
[2024-09-14] MEDS ORDERED: FUROsemide 40 MG/4 ML VIAL IV STA (12:07)
[2024-09-14] MEDS ORDERED: IPRATROPIUM BROMIDE 0.5 MG/2.5 ML AMPUL.NEB IH SCH (13:00)
[2024-09-14 14:31] LABS: ABG PH 7.282 (7.35-7.45); ABG PO2 76.7 mmHg (80-100); ABG pCO2 20.7 mmHg (35-45); BASE EXCESS -14.8 mmol/l; BICARBONATE 9.6 mmol/l (23-25); SaO2 92.2 %; Tco2 10.2 mmol/l; allen test SATISFACTORY; o2 50 %; puncture site RADIAL RIGHT
[2024-09-14] MEDS ORDERED: PIPERACILLIN/TAZOBACTAM SODIUM 2.25 GM VIAL IV SCH (17:00)
[2024-09-14 19:04] LABS: ABG PH 7.221 (7.35-7.45); ABG PO2 402.1 mmHg (80-100); ABG pCO2 23.4 mmHg (35-45); BASE EXCESS -16.3 mmol/l; BICARBONATE 9.4 mmol/l (23-25); SaO2 99.9 %; Tco2 10.1 mmol/l
[2024-09-14] MEDS ORDERED: SODIUM BICARBONATE 1 MEQ/ML DISP.SYRIN 50ML IV ONE ×2 (19:33→19:45)
[2024-09-14 19:45] LABS: allen test SATISFACTORY; puncture site RADIAL RIGHT
[2024-09-14 19:46] LABS: o2 100 %
[2024-09-15 01:19] VITALS: BP 124/63; O2SAT 100
[2024-09-15 02:00] VITALS: O2SAT 100
[2024-09-15] MEDS ORDERED: NOREPINEPHRINE BITARTRATE 4 MG in DEXTROSE 5 % IN WATER 250 ML IV SCH (04:15)
[2024-09-15 06:23] VITALS: O2SAT 0
[2024-09-15 07:48] LABS: CALCIUM 7.8 mg/dL (8.5-10.1); POTASSIUM 3.59 mEq/L (3.5-5.1)
[2024-09-15 07:58] LABS: GFR 11.05
[2024-09-15 09:32] LABS: MEAN CELL VOLUME 80.6 fL (80.00-100.00); MEAN CORPUSCULAR HGB CONC 33.6 g/dl (32.0-36.0); PLATELET COUNT 234 K/uL (150-450); RED BLOOD COUNT 2.83 M/uL (4.00-6.00); RED CELL DISTRIBUTION WIDTH 18.7 % (11.5-14.5)
[2024-09-15 10:03] LABS: HEMATOCRIT 22.8 % (36.0-45.00); MEAN CORPUSCULAR HEMOGLOBIN 27.2 pg (27.00-32.0)
[2024-09-15 10:20] LABS: HEMOGLOBIN 7.7 g/dL (12.0-15.00)
[2024-09-15 13:13] LABS: CREATININE SERUM 3.94 mg/dL (0.55-1.02)
== END 2024-09-15 06:23 | disposition expired | DRG 871 ==
LOC: ER 09:20 → ICU-2 17:59 → SEC-K 08-19 10:13 → MEDI 08-20 16:11
PROVIDERS: Emergency Medicine; General Practice; Internal Medicine; Internal Medicine Nephrology; ADMIT Internal Medicine; ATTEND Internal Medicine
PROC: BW21ZZZ Computerized Tomography (CT Scan) of Abdomen and Pelvis (ICD-10-PCS; principal; 2024-08-17)
PROC: 30233N1 Transfusion of Nonautologous Red Blood Cells into Peripheral Vein, Percutaneous Approach (ICD-10-PCS; 2024-08-17)
PROC: 02HV33Z Insertion of Infusion Device into Superior Vena Cava, Percutaneous Approach (ICD-10-PCS; 2024-08-18)
PROC: 4A12X4Z Monitoring of Cardiac Electrical Activity, External Approach (ICD-10-PCS; 2024-08-20)
PROC: 0T9030Z Drainage of Right Kidney with Drainage Device, Percutaneous Approach (ICD-10-PCS; 2024-08-22)
PROC: 0T9130Z Drainage of Left Kidney with Drainage Device, Percutaneous Approach (ICD-10-PCS; 2024-08-22)
PROC: 0JBR3ZZ Excision of Left Foot Subcutaneous Tissue and Fascia, Percutaneous Approach (ICD-10-PCS; 2024-08-26)
PROC: 0JB73ZZ Excision of Back Subcutaneous Tissue and Fascia, Percutaneous Approach (ICD-10-PCS; 2024-08-26)
PROC: BW21YZZ Computerized Tomography (CT Scan) of Abdomen and Pelvis using Other Contrast (ICD-10-PCS; 2024-08-28)
PROC: 0JBR3ZZ Excision of Left Foot Subcutaneous Tissue and Fascia, Percutaneous Approach (ICD-10-PCS; 2024-08-28)
PROC: 0JB73ZZ Excision of Back Subcutaneous Tissue and Fascia, Percutaneous Approach (ICD-10-PCS; 2024-08-28)
PROC: BW21ZZZ Computerized Tomography (CT Scan) of Abdomen and Pelvis (ICD-10-PCS; 2024-09-03)
PROC: 3E0F7GC Introduction of Other Therapeutic Substance into Respiratory Tract, Via Natural or Artificial Opening (ICD-10-PCS; 2024-09-03)
PROC: 0JBR3ZZ Excision of Left Foot Subcutaneous Tissue and Fascia, Percutaneous Approach (ICD-10-PCS; 2024-09-04)
PROC: 0JB73ZZ Excision of Back Subcutaneous Tissue and Fascia, Percutaneous Approach (ICD-10-PCS; 2024-09-04)
PROC: 0JB73ZZ Excision of Back Subcutaneous Tissue and Fascia, Percutaneous Approach (ICD-10-PCS; 2024-09-11)
PROC: 0JBR3ZZ Excision of Left Foot Subcutaneous Tissue and Fascia, Percutaneous Approach (ICD-10-PCS; 2024-09-11)
DX: A41.9 Sepsis, unspecified organism (principal); J18.9 Pneumonia, unspecified organism; L89.154 Pressure ulcer of sacral region, stage 4; R65.21 Severe sepsis with septic shock; C20 Malignant neoplasm of rectum; N17.8 Other acute kidney failure; K92.2 Gastrointestinal hemorrhage, unspecified; N39.0 Urinary tract infection, site not specified; L97.528 Non-pressure chronic ulcer of other part of left foot with other specified severity; N13.39 Other hydronephrosis; K56.699 Other intestinal obstruction unspecified as to partial versus complete obstruction; D64.89 Other specified anemias; E87.5 Hyperkalemia; B96.1 Klebsiella pneumoniae [K. pneumoniae] as the cause of diseases classified elsewhere; L08.89 Other specified local infections of the skin and subcutaneous tissue; B95.2 Enterococcus as the cause of diseases classified elsewhere; I10 Essential (primary) hypertension; D75.838 Other thrombocytosis; R09.2 Respiratory arrest